=== PATIENT | male | born 1930 ===

== ENCOUNTER 2021-10-21 13:22 | Outpatient (CLI) | payer MEDICARE ==
[2021-10-21 14:42] LABS: Hemoglobin 11.8 g/dL (13.5-17.5); Mean Corpuscular HGB CONC 31.6 g/dL (32.0-36.0); Mean Corpuscular Hemoglobin 31.1 pg (27.0-33.0); Mean Corpuscular Volume 98.4 fl (81.2-95.1); Mean Platelet Volume 10.8 fl (7.4-10.4); Platelet Count 232 10x3/uL (150-450); RBC Distribution Width 13.2 % (11.5-14.5); Red Blood Cell (RBC) Count 3.79 10x6/uL (4.32-5.72); White Blood Cell (WBC) Count 5.3 10x3/uL (3.5-10.5)
[2021-10-21 15:01] LABS: INR-International Normal Ratio 1.2; PTT 27.3 sec (22.0-33.0)
[2021-10-21 15:04] LABS: Anion Gap 21 mmol/L (10-20); BUN (Urea Nitrogen) 88 mg/dL (8.4-25.7); Calc. Creatinine Clearance 0 mL/min (70-130); Calcium 8.8 mg/dL (7.8-10.44); Carbon Dioxide 18 mmol/L (23-31); Chloride 112 mmol/L (98-107); Glucose 93 mg/dL (83-110); Potassium 5.7 mmol/L (3.5-5.1); Sodium 145 mmol/L (136-145)
[2021-10-22 11:02] LABS: SARS-CoV-2 PCR by NAA DETECTED (NotDetected)
== END 2021-10-21 13:23 | disposition home or self-care (01) ==
LOC: LABBT 13:22
PROVIDERS: ATTEND Urology
DX: U07.1 COVID-19 (principal); Z01.812 Encounter for preprocedural laboratory examination
CPT/HCPCS: 80048; 85027; 85610; 85730; 87086; U0003; U0005

== ENCOUNTER 2021-12-24 09:52 | Outpatient (CLI) | payer MEDICARE ==
[2021-12-24 10:50] LABS: Hemoglobin 10.8 g/dL (13.5-17.5); Mean Corpuscular HGB CONC 32.2 g/dL (32.0-36.0); Mean Corpuscular Hemoglobin 30.8 pg (27.0-33.0); Mean Corpuscular Volume 95.4 fl (81.2-95.1); Mean Platelet Volume 10.8 fl (7.4-10.4); Platelet Count 172 10x3/uL (150-450); RBC Distribution Width 13.8 % (11.5-14.5); Red Blood Cell (RBC) Count 3.51 10x6/uL (4.32-5.72)
[2021-12-24 10:52] LABS: Anion Gap 13 mmol/L (10-20); BUN (Urea Nitrogen) 46 mg/dL (8.4-25.7); Calc. Creatinine Clearance 0 mL/min (70-130); Calcium 9.2 mg/dL (7.8-10.44); Carbon Dioxide 24 mmol/L (23-31); Chloride 108 mmol/L (98-107); Glucose 93 mg/dL (83-110); Potassium 4.4 mmol/L (3.5-5.1); Sodium 141 mmol/L (136-145)
[2021-12-24 12:04] LABS: INR-International Normal Ratio 1.1; PTT 25.5 sec (22.0-33.0)
[2021-12-24 17:56] LABS: SARS-CoV-2 PCR by NAA Not Detected (NotDetected)
== END 2021-12-24 09:53 | disposition home or self-care (01) ==
LOC: LABBT 09:52
PROVIDERS: ATTEND Urology
DX: Z01.812 Encounter for preprocedural laboratory examination (principal); N20.1 Calculus of ureter; Z20.822 Contact with and (suspected) exposure to COVID-19
CPT/HCPCS: 80048; 85027; 85610; 85730; 87086; U0003; U0005

== ENCOUNTER 2022-01-13 10:32 | Outpatient (CLI) | payer MEDICARE ==
[2022-01-13 11:57] LABS: Hemoglobin 10.4 g/dL (13.5-17.5); Mean Corpuscular HGB CONC 32.2 g/dL (32.0-36.0); Mean Corpuscular Hemoglobin 31.6 pg (27.0-33.0); Mean Corpuscular Volume 98.2 fl (81.2-95.1); Mean Platelet Volume 11.5 fl (7.4-10.4); Platelet Count 156 10x3/uL (150-450); RBC Distribution Width 13.6 % (11.5-14.5); Red Blood Cell (RBC) Count 3.29 10x6/uL (4.32-5.72); White Blood Cell (WBC) Count 4.3 10x3/uL (3.5-10.5)
[2022-01-13 12:11] LABS: INR-International Normal Ratio 1.2; PTT 27.1 sec (22.0-33.0); Prothrombin Time 12.4 sec (9.5-12.1)
[2022-01-13 12:21] LABS: Anion Gap 14 mmol/L (10-20); BUN (Urea Nitrogen) 41 mg/dL (8.4-25.7); Calc. Creatinine Clearance 0 mL/min (70-130); Calcium 8.8 mg/dL (7.8-10.44); Carbon Dioxide 21 mmol/L (23-31); Chloride 109 mmol/L (98-107); Glucose 97 mg/dL (83-110); Potassium 4.7 mmol/L (3.5-5.1); Sodium 139 mmol/L (136-145)
[2022-01-13 21:10] LABS: SARS-CoV-2 PCR by NAA Not Detected (NotDetected)
== END 2022-01-13 10:33 | disposition home or self-care (01) ==
LOC: LABBT 10:32
PROVIDERS: ATTEND Urology
DX: Z01.812 Encounter for preprocedural laboratory examination (principal); N20.0 Calculus of kidney; Z96.0 Presence of urogenital implants; Z20.822 Contact with and (suspected) exposure to COVID-19
CPT/HCPCS: 80048; 85027; 85610; 85730; 87086; U0003; U0005

== ENCOUNTER 2022-01-18 05:49 | Day surgery (SDC) | payer MEDICARE ==
[2022-01-13 13:12] VITALS: BMI 24.3
[2022-01-18] MEDS ORDERED: Fentanyl 250 MCG/5 ML VIAL ONE (06:34)
[2022-01-18] MEDS ORDERED: Midazolam HCl 2 mg/2 ml Vial ONE (06:34)
[2022-01-18] MEDS ORDERED: Iopamidol 15 ML ONE ×2 (07:07→09:40)
[2022-01-18] MEDS ORDERED: cefTRIAXone\\ROCEPHIN 1 GM VIAL ONE (07:22)
[2022-01-18] MEDS ORDERED: Sodium Chloride 0.9% 100 ML ONE (07:22)
[2022-01-18] MEDS ORDERED: PROPOFOL 200 MG/20 ML VIAL ONE (07:27)
[2022-01-18] MEDS ORDERED: Ondansetron PF 4 MG/2 ML Vial ONE (07:27)
[2022-01-18] MEDS ORDERED: Dexamethasone 20 MG/5 ML VIAL ONE (07:27)
[2022-01-18] MEDS ORDERED: Lidocaine 1% PF 5 ML VIAL ONE (07:27)
== END 2022-01-18 12:35 | disposition home or self-care (01) ==
LOC: SDC 05:49
PROVIDERS: ATTEND Urology
PROC: 0TC48ZZ Extirpation of Matter from Left Kidney Pelvis, Via Natural or Artificial Opening Endoscopic (ICD-10-PCS; principal; 2022-01-18)
PROC: 0TC78ZZ Extirpation of Matter from Left Ureter, Via Natural or Artificial Opening Endoscopic (ICD-10-PCS; 2022-01-18)
PROC: 0T778DZ Dilation of Left Ureter with Intraluminal Device, Via Natural or Artificial Opening Endoscopic (ICD-10-PCS; 2022-01-18)
DX: N13.2 Hydronephrosis with renal and ureteral calculous obstruction (principal); I48.91 Unspecified atrial fibrillation; I50.9 Heart failure, unspecified; E11.9 Type 2 diabetes mellitus without complications; Z79.01 Long term (current) use of anticoagulants; Z79.82 Long term (current) use of aspirin; Z79.899 Other long term (current) drug therapy; Z88.1 Allergy status to other antibiotic agents; Z95.5 Presence of coronary angioplasty implant and graft; Z95.810 Presence of automatic (implantable) cardiac defibrillator
CPT/HCPCS: 74420; C2617; J0696; J1100; J2250; J2405; J2704; J3010; J3490; Q9967